=== PATIENT | male | born 1960 | race African-American/Black ===

== ENCOUNTER 2024-09-12 08:05 | Emergency (ER) | payer OTHER ==
[~2024-09-12] VITALS: Ht 177.8 cm; Wt 103.0 kg
[2024-09-12 08:08] VITALS: O2SAT 100
[2024-09-12 08:12] VITALS: BP 133/81; PULSE 70; RESP 16; TEMP 37.2; O2SAT 100
[2024-09-12 09:41] LABS: BASOPHILS % 0.5 % (0.0-2.0); EOSINOPHILS % 2.6 % (0.0-5.0); HEMOGLOBIN. 16.5 g/dL (14.0-18.0); LYMPHOCYTES % 28.9 % (20.0-50.0); MEAN CORPUSCULAR HEMOGLOBIN 30.6 pg (28.0-32.0); MEAN CORPUSCULAR HGB CONC 33.7 g/dL (31.0-37.0); MEAN PLATELET VOLUME 8.5 fl (7.4-10.4); MONOCYTES % 5.7 % (2.0-8.0); NEUTROPHILS % 62.3 % (40.0-76.0); PLATELET 187 x1000/uL (130-400); RED BLOOD CELL COUNT 5.39 mill/uL (4.7-6.1); RED CELL DISTRIBUTION WIDTH 13.1 % (11.6-14.6); WHITE BLOOD COUNT 6.6 x1000/uL (4.5-11.0)
[2024-09-12 09:49] LABS: CHLORIDE 108 mEq/L (98-107); POTASSIUM 4.3 mEq/L (3.5-5.1); SODIUM 139 mEq/L (136-145)
[2024-09-12 09:50] LABS: CARBON DIOXIDE 21 mEq/L (21-32)
[2024-09-12 09:55] LABS: GLUCOSE 123 mg/dL (70-105); UREA NITROGEN BLOOD 11 mg/dL (9-23)
[2024-09-12 10:25] LABS: TROPONIN I HIGH SENSITIVITY < 4 ng/L (3.0-53)
== END 2024-09-12 12:19 | disposition home or self-care (01) ==
LOC: ER 08:05
DX: R07.89 Other chest pain (principal)
CPT/HCPCS: 36415; 71045; 80048; 84484; 85025; 93005; 99285